=== PATIENT | female | born 1995 | race Caucasian/White ===

== ENCOUNTER → 2019-01-18 | Outpatient (CLI) | payer OTHER ==
--- NOTE | 2019-01-18 15:12 | RADIOLOGY REPORT (SQ) ---
EXAM DESCRIPTION: U/S RETROPERITON (RENAL/AORTA) COMPLETED DATE/TIME: 01/18/2019 3:03 pm REASON FOR STUDY: NEUROGENIC BLADDER (N31.9) N31.9 NEUROMUSCULAR DYSFUNCTION OF BLADDER, UNSPECIFIE D COMPARISON: None. TECHNIQUE: Dynamic and static grayscale images acquired of the kidneys and bladder and recorded on P ACS. Additional selected color Doppler and spectral images recorded. LIMITATIONS: None. FINDINGS: RIGHT KIDNEY: The right kidney measures 10.1 x 4.5 x 3.9 cm, normal size. Normal echogeni city. No solid or suspicious masses. No hydronephrosis. No calcifications. LEFT KIDNEY: The left kidney measures 11.2 x 5.2 x 5.4 cm, normal size. Normal echogenicity. No bobby d or suspicious masses. No hydronephrosis. No calcifications. BLADDER: No masses. Bilateral ureteral jets are not visualized. OTHER FINDINGS: No other significant finding. IMPRESSION: 1.NORMAL RENAL ULTRASOUND. TECHNICAL DOCUMENTATION: JOB ID: [id number] [employer]- All Rights Reserved Reading location - IP/workstation name: [email or web address]
--- NOTE | 2019-01-18 16:46 | RADIOLOGY REPORT (SQ) ---
EXAM DESCRIPTION: VOIDING CYSTOURETHROGRAM; INJECT VCU/CYSTOGRAM COMPLETED DATE/TIME: 01/18/2019 4:09 pm REASON FOR STUDY: NEUROGENIC BLADDER (N31.9); N31.9 NEUROGENIC BLADDER N31.9 NEUROMUSCULAR DYSFUNCT ION OF BLADDER, UNSPECIFIED COMPARISON: None. FLUOROSCOPY TIME: FLUORO TIME: 2.0 minutes 12 images saved to PACS. LIMITATIONS: None. PROCEDURE: Procedure explained to patient/care-blood bank assistant who gave consent. Urinary bladder catheterized with direct visual inspection using sterile technique. Bladder filled with approximately 300 cc Cys tografin non-ionic contrast via gravity drip. FINDINGS: BLADDER: Normal in size and contour. No filling defects. URETHRA: Patient unable to void spontaneously. LEFT URETER: Spontaneous reflux with dilatation of the renal pelvis (mild) and calyces (pelvocalycea l pattern is retained). RIGHT URETER: No vesicoureteral reflux. OTHER FINDINGS: Intrauterine device overlies midline pelvis. POST VOID: Patient unable to void spontaneously. Following self catheterization no Save residual con trast noted. OTHER: No other significant finding. IMPRESSION: 1. Spontaneous left ureteral reflux with mild dilation of the renal pelvis and calices (pelvocalyceal pattern is retained) Grade 2. 2. Patient unable to spontaneously void. COMMENT: Quality ID 145: Final reports for procedures using fluoroscopy that document radiation exp osure indices, or exposure time and number of fluorographic images (if radiation exposure indices are not available) TECHNICAL DOCUMENTATION: JOB ID: [id number] [employer]- All Rights Reserved Reading location - IP/workstation name: [email or web address]
--- NOTE | 2019-01-18 16:46 | RADIOLOGY REPORT (SQ) ---
EXAM DESCRIPTION: VOIDING CYSTOURETHROGRAM; INJECT VCU/CYSTOGRAM COMPLETED DATE/TIME: 01/18/2019 4:09 pm REASON FOR STUDY: NEUROGENIC BLADDER (N31.9); N31.9 NEUROGENIC BLADDER N31.9 NEUROMUSCULAR DYSFUNCT ION OF BLADDER, UNSPECIFIED COMPARISON: None. FLUOROSCOPY TIME: FLUORO TIME: 2.0 minutes 12 images saved to PACS. LIMITATIONS: None. PROCEDURE: Procedure explained to patient/care-help desk intern who gave consent. Urinary bladder catheterized with direct visual inspection using sterile technique. Bladder filled with approximately 300 cc Cys tografin non-ionic contrast via gravity drip. FINDINGS: BLADDER: Normal in size and contour. No filling defects. URETHRA: Patient unable to void spontaneously. LEFT URETER: Spontaneous reflux with dilatation of the renal pelvis (mild) and calyces (pelvocalycea l pattern is retained). RIGHT URETER: No vesicoureteral reflux. OTHER FINDINGS: Intrauterine device overlies midline pelvis. POST VOID: Patient unable to void spontaneously. Following self catheterization no Save residual con trast noted. OTHER: No other significant finding. IMPRESSION: 1. Spontaneous left ureteral reflux with mild dilation of the renal pelvis and calices (pelvocalyceal pattern is retained) Grade 2. 2. Patient unable to spontaneously void. COMMENT: Quality ID 145: Final reports for procedures using fluoroscopy that document radiation exp osure indices, or exposure time and number of fluorographic images (if radiation exposure indices are not available) TECHNICAL DOCUMENTATION: JOB ID: [id number] [employer]- All Rights Reserved Reading location - IP/workstation name: [email or web address]
== END ==
LOC: RAD 14:21
PROVIDERS: ATTEND Urology
DX: N31.9 Neuromuscular dysfunction of bladder, unspecified (principal)
CPT/HCPCS: 51600; 74455; 76770